=== PATIENT | male | born 1980 | race American Indian/Alaskan Native ===

== ENCOUNTER 2018-03-13 15:46 | Emergency (ER) | payer BC ==
[2018-03-13 16:06] VITALS: O2SAT 98
[2018-03-13] MEDS ORDERED: Sodium Chloride 0.9% 1,000 ML IV ONE ×2 (16:24→16:55)
[2018-03-13] MEDS ORDERED: Sodium Chloride 0.9% 1,000 ML ONE ×2 (16:37→17:17)
[2018-03-13 16:45] LABS: BASO % 0.5 % (0.0-2.0); EOS # 0.1 K/uL (0.0-0.7); EOS % 1.5 % (0.0-4.0); HEMOGLOBIN 15.7 g/dL (12.0-18.0); LYMPH # 2.6 K/uL (1.0-4.3); LYMPH % 42.4 % (20.0-40.0); MEAN CELL VOLUME 88.9 fL (80.0-94.0); MEAN CORPUSCULAR HEMOGLOBIN 30.9 pg (27.0-31.0); MEAN CORPUSCULAR HGB CONC 34.8 g/dL (33.0-37.0); MEAN PLATELET VOLUME 7.5 fL (7.2-11.7); MONO # 0.6 K/uL (0.0-0.8); MONO % 10.2 % (0.0-10.0); NEUT # 2.8 K/uL (1.8-7.0); NEUT % 45.4 % (50.0-75.0); NRBC % 0.1 % (0.0-2.0); RBC 5.09 Mil/uL (4.40-5.90); RED CELL DISTRIBUTION WIDTH 13.1 % (11.5-14.5); WHITE BLOOD COUNT 6.1 K/uL (4.8-10.8)
[2018-03-13 16:47] LABS: URINE BILIRUBIN NEGATIVE (NEGATIVE); URINE BLOOD NEGATIVE (NEGATIVE); URINE CLARITY Clear (Clear); URINE COLOR Straw (YELLOW); URINE GLUCOSE (UA) 3+ mg/dL (Normal); URINE LEUKOCYTE ESTERASE NEG Leu/uL (Negative); URINE PROTEIN NEGATIVE (NEGATIVE); URINE UROBILINOGEN NORMAL mg/dL (0.2-1.0)
[2018-03-13 17:03] LABS: ALB/GLOB RATIO 1.4 (1.0-2.1); ALBUMIN 4.8 g/dL (3.5-5.0); ALT/SGPT 34 U/L (21-72); AST/SGOT 40 U/L (17-59); BLOOD UREA NITROGEN 18 mg/dL (9-20); CALCIUM 9.8 mg/dl (8.6-10.4); GFR AFRICAN-AMERICAN > 60; GFR NON-AFRICAN AMERICAN > 60; LIPASE 31 U/L (23-300)
[2018-03-13] MEDS ORDERED: (Novolin R) Insulin Human Regular 100 units/ml vial IV ONE (17:03)
[2018-03-13] MEDS ORDERED: (Novolin R) Insulin Human Regular 100 units/ml vial ONE (17:17)
--- NOTE | 2018-03-13 18:32 | C.PDOC ---
History Of Present Illness 37 y/o male,w/PMhx of diabetes, presents to the ER complaining of generalized weakness and muscle cramps which has been present for the past few days. Patient states that he ran out of his insulin 2 weeks ago.Patient reports that "I've been trying to sleep it off" but his symptoms did not improve. He notes that he has polydipsia and polyuria. Denies having fever, dizziness, headache, chest pain, sob, nausea, vomiting, and abdominal pain. Time Seen by Provider: 03/13/18 16:23 Chief Complaint (Nursing): Weakness/Neurological Deficit History Per: Patient History/Exam Limitations: no limitations Onset/Duration Of Symptoms: Days Current Symptoms Are (Timing): Still Present Severity: Moderate Past Medical History Reviewed: Historical Data, Nursing Documentation, Vital Signs Vital Signs: Last Vital Signs Temp 98.4 F 03/13/18 18:49 Pulse 85 03/13/18 18:49 Resp 20 03/13/18 18:49 BP 109/66 03/13/18 18:49 Pulse Ox 98 03/13/18 18:52 - Medical History PMH: Diabetes (Type 1) Denies: Geraldo's Disease, Carol's Syndrome, Graves' Disease, Hyperthyroidism, Hypothyroidism Surgical History: No Surg Hx Family History: States: No Known Family Hx - Social History Hx Tobacco Use: No Hx Alcohol Use: Yes Hx Substance Use: Yes - Immunization History Hx Tetanus Toxoid Vaccination: No Hx Influenza Vaccination: No Hx Pneumococcal Vaccination: No Review Of Systems Except As Marked, All Systems Reviewed And Found Negative. Constitutional: Positive for: Weakness. Negative for: Fever, Chills Gastrointestinal: Negative for: Nausea, Vomiting, Abdominal Pain Physical Exam - Physical Exam Appears: Non-toxic, No Acute Distress Skin: Normal Color, Warm, Dry Head: Atraumatic, Normacephalic Eye(s): bilateral: Normal Inspection, EOMI Nose: Normal Oral Mucosa: Moist Neck: Normal ROM, Supple Chest: Symmetrical Cardiovascular: Rhythm Regular Respiratory: Normal Breath Sounds, No Rales, No Rhonchi, No Wheezing Gastrointestinal/Abdominal: Normal Exam, Soft, No Tenderness, No Guarding, No Rebound Extremity: Normal ROM Neurological/Psych: Oriented x3, Normal Speech ED Course And Treatment - Laboratory Results Result Diagrams: 03/13/18 16:35 03/13/18 16:35 O2 Sat by Pulse Oximetry: 98 (RA) Pulse Ox Interpretation: Normal Progress Note: Labs and UA ordered. Patient treated with IV Fluids and Insulin IV. On re-evaluation, pt notes that he is feeling better. Has no complaints. Disucssed with pt strict follow up and risks of uncontrolled DM. Pt verbalizes understanding. Case discussed with Dr ORELLANA who evaluated work up and agreed upon and discharge. Disposition - Disposition Referrals: Vivian Rodriguez MD [Medical Doctor] - Disposition: HOME/ ROUTINE Disposition Time: 18:37 Condition: STABLE Additional Instructions: Follow up with your PMD in 1-2 days. Return to ER if symptoms persist or worsen. Prescriptions: Insulin Aspart, Recombinant [Novolog] 10 units SC TID 14 Days unit Insulin Detemir [Levemir] 30 unit SC DAILY 14 Days unit Instructions: Hyperglycemia, Adult Forms: [employer] (Albanian) - Clinical Impression Clinical Impression: Hyperglycemia - PA / PLANT OPERATOR / Resident Statement MD/DO has reviewed & agrees with the documentation as recorded. - Scribe Statement The provider has reviewed the documentation as recorded by the Mignon Morris Provider Attestation All medical record entries made by the Keenanibe were at my direction and personally dictated by me. I have reviewed the chart and agree that the record accurately reflects my personal performance of the history, physical exam, medical decision making, and the department course for this patient. I have also personally directed, reviewed, and agree with the discharge instructions and disposition.
[2018-03-13 18:50] VITALS: BP 109/66; PULSE 85; RESP 20; TEMP 98.4
== END 2018-03-13 18:57 | disposition home or self-care (01) ==
LOC: C.ER 15:46
DX: E10.65 Type 1 diabetes mellitus with hyperglycemia (principal); Z79.4 Long term (current) use of insulin
CPT/HCPCS: 80053; 81001; 82009; 82948; 83690; 85025; 96361; 96374; 99285; J7030

== ENCOUNTER 2018-05-17 17:00 | Emergency (ER) | payer BC ==
[2018-05-17 17:18] VITALS: BP 156/95; PULSE 98; RESP 18; TEMP 98.8; O2SAT 97
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
== END 2018-05-17 18:33 | disposition home or self-care (01) ==
LOC: C.ER 17:00
DX: S63.91XA Sprain of unspecified part of right wrist and hand, initial encounter (principal); S60.221A Contusion of right hand, initial encounter; X58.XXXA Exposure to other specified factors, initial encounter; Y92.219 Unspecified school as the place of occurrence of the external cause